=== PATIENT | male | born 1970 | race Caucasian/White ===

== ENCOUNTER 2017-06-23 13:27 | Emergency (ER) | payer MEDICAID, SELFPAY ==
[2017-06-23 13:31] VITALS: BP 133/80; PULSE 98; RESP 20; TEMP 36.7; O2SAT 92; BMI 35.2
[2017-06-23 13:43] VITALS: BP 133/80; PULSE 98; RESP 20; TEMP 36.7; O2SAT 92; BMI 35.2
--- NOTE | 2017-06-23 14:02 | HMH.EDGENADL ---
ED Disposition Clinical Impression: Alcoholism, Hypertension, Cellulitis of toe, right Disposition: Home, Self-Care Condition on Discharge: Fair Additional Instructions: 1- the patient is cleared to go to alcohol rehab. 2- follow up with Dr Reagan on your toe untill cured. 3- the patient was advised to use a slipper and air dry his toe. 4- he has enough abx. 5- return if needed. Referrals: Elizabeth Fletcher DPM [Physician] - - Critical Care Critical Care Time: No Attestation: On , the high probability of a clinically significant, sudden or life threatening deterioration of the following system(s) required my full and direct attention, intervention and personal management. The time I documented below is in addition to time spent performing reported procedures but includes the following listed in this critical care notation. Medical Decision Making - Nelson Inquiry Pt receiving controlled substance: No Nelson was queried for this patient: No Vital Signs: 06/23/17 13:31 06/23/17 13:43 Temperature 98.1 F 98.1 F Temperature Source Oral Oral Pulse Rate [Right Brachial] 98 H 98 H Respiratory Rate 20 20 Blood Pressure [Right Arm] 133/80 133/80 Blood Pressure Mean [Right Arm] 97 97 Blood Pressure Source [Right Arm] Automatic Cuff Automatic Cuff Blood Pressure Position [Right Arm] Sitting Sitting 02 Sat by Pulse Oximetry 92 L 92 L Oxygen Delivery Method Room Air Room Air - Lab Data Lab results reviewed: Yes: I reviewed the patient's lab results. Lab Results 06/23/17 14:05: Urine Opiates Screen Negative, Ur Barbituates Screen Negative, Ur Phencyclidine Scrn Negative, Ur Amphetamines Screen Negative, U Methamphetamines Scrn Negative, U Benzodiazepines Scrn Negative, Urine Cocaine Screen Negative, U Marijuana (THC) Screen Negative 06/23/17 14:15: WBC 5.1, RBC 5.26, Hgb 16.1, Hct 49.4, MCV 93.9, MCH 30.6, MCHC 32.6, RDW 13.4, Plt Count 109 L, MPV 7.6, Neut % (Auto) 62.0, Lymph % (Auto) 26.6, Jewell % (Auto) 9.6 H, Eos % (Auto) 1.2, Baso % (Auto) 0.5, Neut # (Auto) 3.2, Lymph # (Auto) 1.4, Jewell # (Auto) 0.5, Eos # (Auto) 0.1, Baso # (Auto) 0.0, ESR 18 H 06/23/17 14:15: Sodium 146 H, Potassium 3.3 L, Chloride 105, Carbon Dioxide 31, Anion Gap 13.3, BUN 5 L, Creatinine 0.79, Estimated Creat Clear 195, Estimated GFR 106, Est GFR ( Amer) 128, Glucose 123 H, Calcium 8.5, Magnesium 1.5, Total Bilirubin 0.5, AST 88 H, ALT 73, Alkaline Phosphatase 67, C-Reactive Protein 0.4, Total Protein 7.8, Albumin 3.4, Globulin 4.4 H, Albumin/Globulin Ratio 0.8 L, Plasma/Serum Alcohol 251 H Result diagrams: 06/23/17 14:15 06/23/17 14:15 Orders (Tests/Meds): ED MEDICATIONS Discontinued Medications Generic Name Dose Route Start Last Admin Trade Name Freq PRN Reason Stop Dose Admin Potassium Chloride 20 meq 06/23/17 15:58 Klor-Con 20meq Tablet PO 06/23/17 15:59 ONCE ONE Medical Decision Narrative: IMPRESSION: Soft tissue swelling of the right great toe otherwise negative I discussed with the patient that he will need to take his abx and cleared him for ETOH rehab. Dr Reagan the podiatris presented to the ED discussed and examined the patient , she did I& D with negative results, he is to continue abx and follow up with Dr Alvarado untill cured. General Adult HPI - General Chief complaint: PAIN Stated complaint: AO [id number] left big toe home ao Time Seen by Provider: 06/23/17 13:50 Mode of Arrival: Family Vehicle Limitations: No Limitations Description of Symptoms (Recalled from ER Triage Doc. by RN): C/O INFECTED RIGHT GREAT TOE. ATTEPMTING TO GET INTO REHAB FOR ALCOHOLISM BUT THEY SAID HE NEEDED TO BE CLEARED MEDICALLY BEFORE ACCEPTANCE. PATIENT STEPPED ON SCREW IN MAY AND HAS BEEN TREATED FOR THIS BUT FRIEND STATES HE HASNT BEEN TAKING HIS MEDS PRESCRIBED - History of Present Illness HPI narrative: 47 years old white male with history of alcoholism. 05/20/17, He acciden
--- NOTE | 2017-06-23 14:03 | XR_ITS ---
XR toe RT min 2V CLINICAL INDICATION: ITS.REASON: INFECTED RIGHT GREAT TOE ORDERING PHYSICIAN: Juan Frye MD PATIENT AGE: 47 years COMPARISON: None FINDINGS: There is generalized soft tissue swelling of the great toe. No radio opaque foreign body, soft tissue gas, or bony erosive change evident. There are minor osteoarthritic changes of the first metatarsophalangeal joint. IMPRESSION: Soft tissue swelling of the right great toe otherwise negative
--- NOTE | 2017-06-23 14:06 | ED_ITS ---
ED Disposition Clinical Impression: Alcoholism, Hypertension, Cellulitis of toe, right Disposition: Home, Self-Care Condition on Discharge: Fair Additional Instructions: 1- the patient is cleared to go to alcohol rehab. 2- follow up with Dr Reagan on your toe untill cured. 3- the patient was advised to use a slipper and air dry his toe. 4- he has enough abx. 5- return if needed. Referrals: Elizabeth Fletcher DPM [Physician] - - Critical Care Critical Care Time: No Attestation: On , the high probability of a clinically significant, sudden or life threatening deterioration of the following system(s) required my full and direct attention, intervention and personal management. The time I documented below is in addition to time spent performing reported procedures but includes the following listed in this critical care notation. Medical Decision Making - Nelson Inquiry Pt receiving controlled substance: No Nelson was queried for this patient: No Vital Signs: 06/23/17 13:31 06/23/17 13:43 Temperature 98.1 F 98.1 F Temperature Source Oral Oral Pulse Rate [Right Brachial] 98 H 98 H Respiratory Rate 20 20 Blood Pressure [Right Arm] 133/80 133/80 Blood Pressure Mean [Right Arm] 97 97 Blood Pressure Source [Right Arm] Automatic Cuff Automatic Cuff Blood Pressure Position [Right Arm] Sitting Sitting 02 Sat by Pulse Oximetry 92 L 92 L Oxygen Delivery Method Room Air Room Air - Lab Data Lab results reviewed: Yes: I reviewed the patient's lab results. Lab Results 06/23/17 14:05: Urine Opiates Screen Negative, Ur Barbituates Screen Negative, Ur Phencyclidine Scrn Negative, Ur Amphetamines Screen Negative, U Methamphetamines Scrn Negative, U Benzodiazepines Scrn Negative, Urine Cocaine Screen Negative, U Marijuana (THC) Screen Negative 06/23/17 14:15: WBC 5.1, RBC 5.26, Hgb 16.1, Hct 49.4, MCV 93.9, MCH 30.6, MCHC 32.6, RDW 13.4, Plt Count 109 L, MPV 7.6, Neut % (Auto) 62.0, Lymph % (Auto) 26.6, Martin % (Auto) 9.6 H, Eos % (Auto) 1.2, Baso % (Auto) 0.5, Neut # (Auto) 3.2, Lymph # (Auto) 1.4, Martin # (Auto) 0.5, Eos # (Auto) 0.1, Baso # (Auto) 0.0 , ESR 18 H 06/23/17 14:15: Sodium 146 H, Potassium 3.3 L, Chloride 105, Carbon Dioxide 31, Anion Gap 13.3, BUN 5 L, Creatinine 0.79, Estimated Creat Clear 195, Estimated GFR 106, Est GFR ( Amer) 128, Glucose 123 H, Calcium 8.5, Magnesium 1.5, Total Bilirubin 0.5, AST 88 H, ALT 73, Alkaline Phosphatase 67, C-Reactive Protein 0.4, Total Protein 7.8, Albumin 3.4, Globulin 4.4 H, Albumin/Globulin Ratio 0.8 L, Plasma/Serum Alcohol 251 H Result diagrams: 06/23/17 14:15 06/23/17 14:15 Orders (Tests/Meds): ED MEDICATIONS Discontinued Medications Generic Name Dose Route Start Last Admin Trade Name Freq PRN Reason Stop Dose Admin Potassium Chloride 20 meq 06/23/17 15:58 Klor-Con 20meq Tablet PO 06/23/17 15:59 ONCE ONE Medical Decision Narrative: IMPRESSION: Soft tissue swelling of the right great toe otherwise negative I discussed with the patient that he will need to take his abx and cleared him for ETOH rehab. Dr Reagan the podiatris presented to the ED discussed and examined the patient , she did I& D with negative results, he is to continue abx and follow up with Dr Jenny mclain cured. General Adult HPI - General Chief complaint: PAIN Stated co
[2017-06-23 14:25] LABS: Basophils % 0.5 % (0.1-2.0); Eosinophils # 0.1 K/mm3 (0.0-0.4); Eosinophils % 1.2 % (0.1-12.0); Hematocrit 49.4 % (42.0-52.0); Hemoglobin 16.1 g/dL (14.1-18.0); Lymphocytes # 1.4 K/mm3 (0.7-4.5); Lymphocytes % 26.6 K/mm3 (10-50); Mean Corpuscular HGB Conc 32.6 g/dL (31.8-35.4); Mean Corpuscular Hemoglobin 30.6 pg (27.0-31.2); Mean Corpuscular Volume 93.9 fl (80-94); Mean Platelet Volume 7.6 fl (7.4-10.4); Monocytes # 0.5 K/mm3 (0.1-1.0); Monocytes % 9.6 % (1.7-9.3); Neutrophils # 3.2 K/mm3 (1.8-7.8); Platelet Count 109 K/mm3 (142-424); Red Blood Count 5.26 M/mm3 (4.60-6.20); Red Cell Distribution Width 13.4 % (11.5-17.5); White Blood Count 5.1 K/mm3 (4.8-10.8)
[2017-06-23 14:29] LABS: Amphetamine/Metha Screen,Urine Negative ng/mL (<1000); Barbiturates Screen,Urine Negative ng/mL (<200); Benzodiazepines Screen,Urine Negative ng/mL (200); Cannabinoid Screen,Urine Negative ng/mL (<50); Cocaine Screen,Urine Negative ng/g (<300); Methadone Screen,Urine Negative ng/mL (<300); Opiate Screen,Urine Negative ng/mL (<300); Phencyclidine Screen,Urine Negative ng/mL (<25)
[2017-06-23 14:40] LABS: Alanine Aminotransferase 73 U/L (12-78); Albumin Level 3.4 gm/dL (3.4-5.0); Albumin/Globulin Ratio 0.8 (1.1-1.8); Alkaline Phosphatase 67 U/L (46-116); Anion Gap 13.3 mEq/L (5-15); Aspartate Amino Transferase 88 U/L (15-37); Bilirubin,Total 0.5 mg/dL (0.2-1.0); Blood Urea Nitrogen 5 mg/dL (7-18); C-Reactive Protein 0.4 mg/L (0.0-0.9); Calcium 8.5 mg/dL (8.5-10.1); Carbon Dioxide 31 mmol/L (21.0-32.0); Chloride 105 mmol/L (98-107); Creatinine Clearance Estimated 195 mL/min (0-300); Creatinine,Serum 0.79 mg/dL (0.70-1.30); Estimated Glomerular Filt Rate 106 ml/min (>60); Ethyl Alcohol 251 mg/dL (0-99); GFR (African American) 128 ML/MIN (>60); Globulin 4.4 gm/dl (1.3-3.2); Glucose 123 mg/dL (74-106); Magnesium 1.5 mg/dL (1.4-2.2); Potassium 3.3 mmoL/L (3.5-5.1); Sodium 146 mmol/L (136-145); Total Protein,Serum 7.8 gm/dL (6.4-8.2)
[2017-06-23 15:09] LABS: Erythrocyte Sedimentation Rate 18 mm/hr (0-15)
--- NOTE | 2017-06-23 16:09 | PC.NURSE ---
DR GARCIA CONSULTED WITH PATIENT PRIOR TO D/C FROM ED. [facility] NOTIFIED THAT PATIENT WAS MEDICALLY CLEARED FOR ALCOHOL REHAB PER PATIENT REQUEST.
[2017-06-23 16:11] VITALS: BP 134/78; PULSE 90; RESP 18; TEMP 36.6; O2SAT 94
== END 2017-06-23 16:13 | disposition home or self-care (01) ==
PROVIDERS: Emergency Provider Emergency Medicine
DX: L03.031 Cellulitis of right toe (principal); F10.20 Alcohol dependence, uncomplicated; I10 Essential (primary) hypertension
CPT/HCPCS: 73660; 80053; 80305; 83735; 85025; 85651; 86140; 99283